=== PATIENT | male | born 1965 | race Caucasian/White ===

== ENCOUNTER → 2019-01-28 | Outpatient (CLI) | payer BC ==
--- NOTE | 2019-01-28 09:01 | EKG REPORT ---
SEVERITY:- NORMAL ECG - SINUS RHYTHM : Confirmed by: Caren Mansfield MD 28-Jan-2019 09:00:27
== END ==
LOC: OD 08:28
DX: M54.17 Radiculopathy, lumbosacral region (principal); G89.4 Chronic pain syndrome
CPT/HCPCS: 93005; 93010